=== PATIENT | male | born 1970 | race Caucasian/White ===

== ENCOUNTER → 2020-06-28 09:21 | Outpatient (CLI) | payer OTHER, SELFPAY ==
[2020-06-28 11:49] LABS: COVID19 -Nasal RAPID Negative (Negative)
== END ==
PROVIDERS: Visit Provider Physician Assistant
DX: Z01.812 Encounter for preprocedural laboratory examination (principal); Z20.822 Contact with and (suspected) exposure to COVID-19
CPT/HCPCS: 87635

== ENCOUNTER 2020-06-30 10:05 | Day surgery (SDC) | payer OTHER, SELFPAY ==
--- NOTE | 2020-06-30 | PATH_ITS ---
[facility] Accession Number: [id number] . 01 Material submitted: . esophagus - IRREGULAR ZLINE . 01 Clinical history: . A: R/O BARRETTS . 02 Diagnosis: Gastroesophageal Junction, Biopsy: Squamocolumnar junctional mucosa with no diagnostic abnormality. Negative for intestinal metaplasia. Negative for dysplasia and malignancy. . MRV 07/06/2020 1105 Local . 02 Electronically signed: . Farnaz Cantu MD, Pathologist NPI- [id number] . 01 Gross description: . IRREGULAR ZLINE: Received in formalin are 3 fragment(s) of hernández, soft tissue measuring 0.1 x 0.1 x 0.1 cm to 0.2 x 0.2 x 0.2 cm submitted entirely in 1 cassette(s) /MARCELINO 07/02/2020 1856 Local . 02 Pathologist provided ICD-10: R12 . 02 CPT . 672090 Performed at: 01 [facility] [address] [facility] [address] [facility], [place], [place] [id number] MD Octavio Childers MD Phone: [phone] Performed at: 02 [facility] [address] [place], [place] [id number] MD Farnaz Cantu MD Phone: [phone]
[2020-06-30 10:27] VITALS: BP 143/82; PULSE 60; RESP 16; TEMP 36.2; O2SAT 97; BMI 25.0
[2020-06-30] MEDS: LACTATED RINGERS 1,000 ML 200 ML IV (10:39)
--- NOTE | 2020-06-30 11:25 | P.HP_ITS ---
History of Present Illness History of Present Illness [place] [facility] [place] History Medical History (Updated 06/30/20 @ 10:26 by Angie Walls RN) Ruptured disk Family & Social History Social History: household members spouse Tobacco & Substance use: Smoking Status Never smoker alcohol intake current alcohol intake frequency a few times a week Substance Use Type does not use Meds Home Medications and Allergies Home Medications Medication Instructions Recorded Confirmed Type esomeprazole magnesium [Nexium] 40 mg PO DAILY 06/30/20 06/30/20 History Allergies Allergy/AdvReac Type Severity Reaction Status Date / Time aspirin Allergy Anaphylaxis Verified 06/30/20 10:23 Review of Systems Review of Systems ROS: Yes All systems reviewed with the patient and are negative except as otherwise documented Exam Vital Signs (past 8 hours): - 06/30/20 10:27 Temperature 97.1 F L Pulse Rate 60 Respiratory Rate 16 Blood Pressure 143/82 H Pulse Oximetry 97 Oxygen Delivery Method Room Air Narrative Exam Narrative: Awake alert and oriented x3, pupils equal round reactive to light, oropharynx clear, heart regular rate and rhythm, lungs clear to auscul tation bilaterally, abdomen nontender and nondistended, extremities without edema, no gross neurologic deficits noted Assessment & Plan Assessment & Plan narrative: Chronic GERD for EGD COVID-19 COVID-19 status: Negative
[2020-06-30] MEDS: fentaNYL 250 MCG/5 ML INJ IV (11:34)
[2020-06-30] MEDS: MIDAZOLAM 5 MG/5 ML VIAL IV (11:36)
--- NOTE | 2020-06-30 11:46 | P.OP.ENDO_ITS ---
Operative Date/Time/Diagnoses Date of procedure: 06/30/20 Procedure & Clinicians Study performed: EGD with cold biopsy Moderate conscious sedation was administered by the endoscopy nurse and supervised by the endoscopist. The following parameters were monitored: Oxygen saturation, heart rate, blood pressure, and response to care. 4mg midazolam, 100mcg fentanyl given. Same procedure as scheduled: Yes Indications: Chronic GERD persistent despite PPI therapy Procedure Notes Procedure in detail: Prior to the procedure, history and physical was performed, and patient medications and allergies were reviewed. Preprocedure nursing history and assessment was reviewed. Patient identification and proposed procedure were verified by the physician and nurse in the procedure room. The physical status of the patient was reassessed after the procedure. After informed consent was obtained including risks, benefits, and alternatives, the scope was passed under direct vision. Throughout the procedure, the patient's blood pressure, pulse, and oxygen saturations were monitored continuously. The upper endoscope was introduced through the mouth and advanced to the 2nd portion of the duodenum. Retroflexion was performed in the stomach. The patient tolerated the procedure well. The esophagus was normal appearing except for three 1 cm long tongues of salmon- colored mucosa extending above the top of the gastric folds. This was biopsied to rule out Michelle's esophagus. [place] class if Michelle's is confirmed is M1C0. Top of the gastric folds located at 40 cm from the incisors. Crural pinch located at 42 cm from the incisors. 2 cm hiatal hernia Numerous 3-8 mm sessile and semi sessile polyps noted in the fundus and body of the stomach. The appearance was classic for fundic gland polyps. Normal appearing examined duodenum and ampulla Impression: Possible short-segment Michelle's esophagus, biopsied 2 cm hiatal hernia Fundic gland polyps Normal appearing duodenum and ampulla Sedation minutes: 10 Complications: other (EBL minimal. No complications) Post-procedure Plan for aftercare: Follow-up pathology results Continue present medications Follow anti-reflux diet and lifestyle Make a follow-up appointment to discuss EGD findings Patient has a contact number available for emergencies. The signs and symptoms of potential delayed complications were discussed with the patient. Return to normal activities tomorrow. Written discharge instructions were provided to the patient. Discharge home with escort
[2020-06-30 11:48] VITALS: BP 116/71; PULSE 72; RESP 14; TEMP 36.6; O2SAT 94
[2020-06-30 11:53] VITALS: BP 116/71; PULSE 67; RESP 15; O2SAT 94
[2020-06-30 11:58] VITALS: BP 131/77; PULSE 67; RESP 14; O2SAT 95
[2020-06-30 12:03] VITALS: BP 131/77; PULSE 58; RESP 14; TEMP 36.6; O2SAT 96
[2020-06-30 12:14] VITALS: BP 125/77; PULSE 65; RESP 16; TEMP 36.6; O2SAT 95
== END 2020-06-30 12:16 | disposition home or self-care (01) ==
PROVIDERS: PCP Internal Medicine; Referring Provider Internal Medicine; Visit Provider Internal Medicine
PROC: 0DJ08ZZ Inspection of Upper Intestinal Tract, Via Natural or Artificial Opening Endoscopic (ICD-10-PCS; CPT 43235; principal; 2020-06-30 11:00)
DX: K44.9 Diaphragmatic hernia without obstruction or gangrene (principal); R12 Heartburn; K21.9 Gastro-esophageal reflux disease without esophagitis; J39.2 Other diseases of pharynx; R79.89 Other specified abnormal findings of blood chemistry
CPT/HCPCS: 43239; J2250; J3010